=== PATIENT | female | born 1935 | race Two or more races ===

== ENCOUNTER 2017-08-11 21:35 | Inpatient (IN) | payer MEDICARE, MEDICAID ==
[~2017-08-11] VITALS: Ht 172.7 cm; Wt 75.9 kg
--- NOTE | 2017-08-11 21:41 | NUR ---
pt bib RA 89 with multiple complains of chest pressure, R knee pain, and weakness x2 days. pt speaking clearly in salvadorean. no slurred speech noted. pt in no acute distress.
[2017-08-11 22:14] LABS: BASOPHILS # (AUTO) 0.1 K/uL (0.0-8.0); BASOPHILS % (AUTO) 1.2 % (0.0-2.0); EOSINOPHILS # (AUTO) 0.6 K/uL (0.0-0.7); EOSINOPHILS % (AUTO) 6.8 % (0.0-7.0); HEMATOCRIT 36.7 % (31.2-41.9); HEMOGLOBIN 12.2 g/dL (10.9-14.3); LYMPHOCYTES % (AUTO) 31.6 % (20.5-51.5); MEAN CORPUSCULAR HEMOGLOBIN 30.5 uug (24.7-32.8); MEAN CORPUSCULAR HGB CONC 33 g/dL (32.3-35.6); MEAN CORPUSCULAR VOLUME 91.5 fL (75.5-95.3); MONOCYTES # (AUTO) 0.8 K/uL (2.0-10.0); MONOCYTES % (AUTO) 8.2 % (0.0-11.0); NEUTROPHILS % (AUTO) 52.2 % (38.5-71.5); PLATELET COUNT (AUTO) 534 K/uL (179-408); RED BLOOD CELL COUNT(AUTO) 4.01 MIL/uL (3.63-4.92); WHITE BLOOD COUNT (AUTO) 9.5 K/uL (3.8-11.8)
[2017-08-11 22:17] LABS: CARBON DIOXIDE 28 mmol/L (21-32); CHLORIDE 103 mmol/L (98-107); CREATININE 1.8 mg/dL (0.6-1.3); GLUCOSE 99 mg/dL (74-106); POTASSIUM 4.9 mmol/L (3.5-5.1); UREA NITROGEN, BLOOD 39 mg/dL (7-18)
[2017-08-11 22:30] LABS: ALANINE AMINOTRANSFERASE 18 U/L (14-59); ALKALINE PHOSPHATASE 117 U/L (50-136); ASPARTATE AMINOTRANSFERASE 12 U/L (15-37); BILIRUBIN,DIRECT 0.1 mg/dL (0.0-0.2); BILIRUBIN,TOTAL 0.7 mg/dL (0.2-1.0); TOTAL PROTEIN, SERUM 8.6 g/dL (6.4-8.2)
[2017-08-11 23:40] LABS: *BILIRUBIN,URIN NEGATIVE (NEGATIVE); *BLOOD, URINE Trace-intact (NEGATIVE); *CLARITY,URINE CLOUDY (CLEAR); *COLOR,URINE YELLOW (YELLOW); *KETONES,URINE NEGATIVE (NEGATIVE); *PROTEIN,URINE NEGATIVE (NEGATIVE); *UROBILINOGEN,URINE 0.2 E.U./dl (NORMAL); LEUKOCYTE ESTERASE ,URINE TRACE (NEGATIVE); NITRITE, URINE POSITIVE (NEGATIVE)
--- NOTE | 2017-08-11 23:40 | NUR ---
Patient is resting comfortably in bed with eyes closed, daughter at bedside. pt in no acute distress
[2017-08-11 23:47] LABS: UGLUCOSE 3+ (NEGATIVE)
[2017-08-11] MEDS ORDERED: SITA50TA PO (23:48)
[2017-08-11] MEDS ORDERED: CLON0.5T4 PO (23:48)
[2017-08-11] MEDS ORDERED: CANA100T PO (23:48)
[2017-08-11] MEDS ORDERED: ASPI81TA31 PO (23:48)
[2017-08-11] MEDS ORDERED: ATOR40TA PO (23:48)
[2017-08-11] MEDS ORDERED: REPA1TAB6 PO (23:48)
[2017-08-11] MEDS ORDERED: AMLO10TA2 PO (23:48)
[2017-08-11] MEDS ORDERED: CARV6.252 PO (23:48)
[2017-08-11 23:51] LABS: BACTERIA,URINE MANY /HPF (NONE SEEN); SQUAMOUS EPITHELIAL CELL,UR FEW /HPF (NONE SEEN); WBC,URINE 50-80 /HPF (0-3)
[2017-08-12] MEDS ORDERED: ASPIRIN 81 MG TAB.CHEW PO SCH (00:45)
[2017-08-12] MEDS ORDERED: CLONAZEPAM 0.5 MG TABLET PO SCH (00:45)
[2017-08-12] MEDS ORDERED: ATORVASTATIN 40 MG TABLET PO SCH (00:45)
[2017-08-12] MEDS ORDERED: CARVEDILOL 6.25 MG TABLET PO SCH (00:45)
[2017-08-12] MEDS ORDERED: AMLODIPINE 10 MG TABLET PO SCH (00:45)
--- NOTE | 2017-08-12 01:20 | NUR ---
bed assignment given for this pt at 0030. report given to inpt nurse Tierra RN at 0120.
[2017-08-12 02:07] VITALS: BP 139/51
[2017-08-12] MEDS ORDERED: FUROSEMIDE 40 MG/4 ML VIAL IV PRN (03:00)
[2017-08-12] MEDS ORDERED: ONDANSETRON 4 MG/2 ML VIAL IV PRN (03:00)
[2017-08-12] MEDS ORDERED: DEXTROSE 50% 50 ML DISP.SYRIN IV PRN ×2 (03:00→14:15)
[2017-08-12] MEDS ORDERED: INSULIN REGULAR, HUMAN 300 UNITS/3 ML VIAL SQ PRN (03:00)
[2017-08-12] MEDS ORDERED: INSULIN REGULAR, HUMAN 300 UNIT/3 ML VIAL SQ PRN ×2 (03:00→14:15)
--- NOTE | 2017-08-12 03:35 | NUR ---
ADMITTED THIS 82 Y.O. WOMAN FROM ER VIA [facility],ACCOMPANIED BY ER NURSE, ALERT AND ORIENTED, IN NO ACUTE RESP DISTRESS, APPEARS WEAK , AYALA CATHEHER PATENT AND DRAINING WELL TO YELLOW URINE, REPOSITIONED FOR COMFORT.NEEDS ATTENDED TO.SPEAKS AFGHAN ONLY. NO COMPLAINTS OF PAIN AT THIS TIME. KEPT DRY AND CLEAN.VS TAKEN AND RECORDED.ON TELE SINUS BRADY46. REFUSED TO BE BOTHERED ,JUST WANT TO SLEEP AND REST,TA.LE WERY EDEMATOUS,ELEVATED ON PILLOWS. CALL LITE W/I REACH.
[2017-08-12 04:00] VITALS: BP 124/65
[2017-08-12] MEDS ORDERED: CEFTRIAXONE 1 G VIAL ONE (04:19)
[2017-08-12] MEDS: CEFTRIAXONE 1 G in IV DEXTROSE 5% 50 ML IV SCH (05:04)
--- NOTE | 2017-08-12 06:37 | NUR ---
Initial blood sugar check shows 77, patient asymptomatic awake alert & oriented. 1 cup orange juice given. Will repeat blood sugar check in 15 mins.
[2017-08-12] MEDS: BLOOD SUGAR DIAGNOSTIC 1 EACH STRIP VI SCH ×4 (07:26→21:09)
--- NOTE | 2017-08-12 07:26 | NUR ---
Repeat blood sugar check shows 86. No acute resp distress. Report given to Danielle BRYSON.
[2017-08-12] MEDS: REPAGLINIDE 1 MG TABLET PO SCH (07:30)
--- NOTE | 2017-08-12 08:00 | NUR ---
AWAKE COOPERATE SPEAK MIRNA ON FALL PRECAUTION CALL LIGHT IN REACH AND BED ALARM ON
[2017-08-12] MEDS: CLONAZEPAM 0.5 MG TABLET PO SCH (08:24)
[2017-08-12] MEDS: ASPIRIN 81 MG TAB.CHEW PO SCH (08:24)
[2017-08-12] MEDS: ATORVASTATIN 40 MG TABLET PO SCH (08:24)
[2017-08-12] MEDS: AMLODIPINE 10 MG TABLET PO SCH (08:25)
[2017-08-12] MEDS: CARVEDILOL 6.25 MG TABLET PO SCH ×2 (08:25→09:00)
[2017-08-12] MEDS: HYDROCODONE/APAP 5-325MG TABLET PO PRN ×2 (08:59→21:29)
[2017-08-12] MEDS ORDERED: SITAGLIPTIN PHOSPHATE 50 MG TABLET PO SCH (09:00)
[2017-08-12] MEDS ORDERED: ENOXAPARIN SODIUM 40 MG/0.4 ML DISP.SYRIN SQ SCH (09:00)
[2017-08-12 10:51] LABS: BASOPHILS # (AUTO) 0.1 K/uL (0.0-8.0); BASOPHILS % (AUTO) 1.1 % (0.0-2.0); EOSINOPHILS # (AUTO) 0.6 K/uL (0.0-0.7); HEMOGLOBIN 11.5 g/dL (10.9-14.3); LYMPHOCYTES # (AUTO) 1.9 K/uL (20.0-40.0); MEAN CORPUSCULAR HEMOGLOBIN 30.9 uug (24.7-32.8); MEAN CORPUSCULAR HGB CONC 34 g/dL (32.3-35.6); MEAN CORPUSCULAR VOLUME 91.2 fL (75.5-95.3); MONOCYTES # (AUTO) 0.7 K/uL (2.0-10.0); NEUTROPHILS # (AUTO) 6.3 K/uL (1.8-8.9); NEUTROPHILS % (AUTO) 65.9 % (38.5-71.5); PLATELET COUNT (AUTO) 472 K/uL (179-408); RED BLOOD CELL COUNT(AUTO) 3.73 MIL/uL (3.63-4.92); WHITE BLOOD COUNT (AUTO) 9.5 K/uL (3.8-11.8)
[2017-08-12 10:57] LABS: ALANINE AMINOTRANSFERASE 18 U/L (14-59); ALKALINE PHOSPHATASE 100 U/L (50-136); ASPARTATE AMINOTRANSFERASE 23 U/L (15-37); BILIRUBIN,TOTAL 0.8 mg/dL (0.2-1.0); CARBON DIOXIDE 23 mmol/L (21-32); CHLORIDE 106 mmol/L (98-107); CREATININE 1.6 mg/dL (0.6-1.3); GLUCOSE 122 mg/dL (74-106); MAGNESIUM 2.3 mg/dL (1.8-2.4); PHOSPHOROUS 3.5 mg/dL (2.5-4.9); POTASSIUM 5.4 mmol/L (3.5-5.1); TOTAL PROTEIN, SERUM 7.3 g/dL (6.4-8.2); UREA NITROGEN, BLOOD 33 mg/dL (7-18)
--- NOTE | 2017-08-12 11:00 | NUR ---
Radha MTZ WELFARE WORKER SEE PATIENT AND LAB RESULT THIS AM NEW ORDER IN CHART FAMILY AT BEDSIDE NO SOB OR PAIN BLE STILL SWELLING KEEP UP ON PILLOW
[2017-08-12 12:02] VITALS: BP 119/45
[2017-08-12] MEDS: DOCUSATE SODIUM 100 MG CAPSULE PO SCH ×2 (13:17→21:07)
--- NOTE | 2017-08-12 15:00 | NUR ---
TO X RAY VIA BED FOR LUNG SCAN CONSENT SIGNS
--- NOTE | 2017-08-12 15:45 | NUR ---
BACK TO ROOM LAB DRAW K+ THIS PM ORDER
[2017-08-12 16:00] VITALS: BP_SYST 134; BP_SYST 135; BP_DIAS 42; BP_DIAS 45
--- NOTE | 2017-08-12 16:00 | NUR ---
ORTHO STATICS BP TAKEN ONLY LY AND SIT UNABLE TO STAND FOR CHECK BP
[2017-08-12] MEDS ORDERED: LACTULOSE 20 G/30 ML LIQUID UDC PO ONE (16:45)
--- NOTE | 2017-08-12 18:00 | NUR ---
HEMODYNAMIC STATUS STABLE PAIN UNDER CONTROL SAFETY MEASURE PROVIDED CALL LIGHT IN REACH NO ACUTE DISTRESS
[2017-08-12 20:00] VITALS: BP 126/40
--- NOTE | 2017-08-12 21:00 | NUR ---
Patient awake & alert no SOB denies chest pain. Vital signs WNL. Prolapsed uterus noted, patient c/o pain. Tylenol 650 mg po given. Vital signs WNL, sinus rhythm sinus leroy on the monitor.
[2017-08-12] MEDS: ACETAMINOPHEN 325 MG TABLET PO PRN (21:06)
[2017-08-12] MEDS: Z GUARD REMEDY PASTE 57 GM TUBE TOP PRN (21:43)
--- NOTE | 2017-08-12 22:00 | NUR ---
Sponge bath & oral hygiene provided. Kept comfortable.
[2017-08-13] VITALS: BP 129/50
[2017-08-13] MEDS: CEFTRIAXONE 1 G in IV DEXTROSE 5% 50 ML IV SCH (03:41)
[2017-08-13 04:00] VITALS: BP 118/40
--- NOTE | 2017-08-13 04:22 | NUR ---
Patient's left AC IV line infiltrated. Inserted a new IV line [id number] into her left forearm.
[2017-08-13 06:18] LABS: BASOPHILS # (AUTO) 0.1 K/uL (0.0-8.0); BASOPHILS % (AUTO) 0.9 % (0.0-2.0); EOSINOPHILS # (AUTO) 0.5 K/uL (0.0-0.7); EOSINOPHILS % (AUTO) 5.2 % (0.0-7.0); HEMATOCRIT 32.1 % (31.2-41.9); HEMOGLOBIN 10.5 g/dL (10.9-14.3); LYMPHOCYTES # (AUTO) 2.4 K/uL (20.0-40.0); LYMPHOCYTES % (AUTO) 25.6 % (20.5-51.5); MEAN CORPUSCULAR HEMOGLOBIN 30.1 uug (24.7-32.8); MEAN CORPUSCULAR HGB CONC 33 g/dL (32.3-35.6); MEAN CORPUSCULAR VOLUME 91.6 fL (75.5-95.3); MONOCYTES # (AUTO) 0.6 K/uL (2.0-10.0); NEUTROPHILS # (AUTO) 5.7 K/uL (1.8-8.9); NEUTROPHILS % (AUTO) 61.3 % (38.5-71.5); PLATELET COUNT (AUTO) 443 K/uL (179-408); WHITE BLOOD COUNT (AUTO) 9.3 K/uL (3.8-11.8)
[2017-08-13 06:39] LABS: ALANINE AMINOTRANSFERASE 13 U/L (14-59); ALKALINE PHOSPHATASE 86 U/L (50-136); ASPARTATE AMINOTRANSFERASE 13 U/L (15-37); BILIRUBIN,TOTAL 0.7 mg/dL (0.2-1.0); CARBON DIOXIDE 26 mmol/L (21-32); CHLORIDE 106 mmol/L (98-107); CHOLESTEROL 139 mg/dL (<200); CREATININE 1.6 mg/dL (0.6-1.3); GLUCOSE 102 mg/dL (74-106); HDL CHOLESTEROL 41 mg/dL (40-60); MAGNESIUM 2.2 mg/dL (1.8-2.4); PHOSPHOROUS 3.7 mg/dL (2.5-4.9); POTASSIUM 5.2 mmol/L (3.5-5.1); TOTAL PROTEIN, SERUM 6.5 g/dL (6.4-8.2); TRIGLYCERIDES 132 MG/DL (30-150); UREA NITROGEN, BLOOD 32 mg/dL (7-18)
[2017-08-13 06:49] LABS: THYROID STIMULATING HORMONE 1.171 mIU/mL (0.358-3.740)
[2017-08-13] MEDS: BLOOD SUGAR DIAGNOSTIC 1 EACH STRIP VI SCH ×4 (06:49→20:44)
[2017-08-13] MEDS: DOCUSATE SODIUM 100 MG CAPSULE PO SCH ×2 (08:16→20:45)
[2017-08-13] MEDS: ASPIRIN 81 MG TAB.CHEW PO SCH (08:17)
[2017-08-13] MEDS: ATORVASTATIN 40 MG TABLET PO SCH (08:17)
[2017-08-13] MEDS: CLONAZEPAM 0.5 MG TABLET PO SCH (08:17)
[2017-08-13] MEDS: AMLODIPINE 10 MG TABLET PO SCH (08:18)
[2017-08-13] MEDS: ENOXAPARIN SODIUM 30 MG/0.3 ML DISP.SYRIN SUBCUT SCH (08:21)
[2017-08-13] MEDS: REPAGLINIDE 1 MG TABLET PO SCH (08:21)
[2017-08-13] MEDS ORDERED: FUROSEMIDE 20 MG/2 ML VIAL IV SCH (09:00)
[2017-08-13] MEDS ORDERED: SITAGLIPTIN PHOSPHATE 50 MG TABLET PO SCH (09:00)
--- NOTE | 2017-08-13 10:27 | NUR ---
POTASSIUM LEVEL IS 5.2 REVIEWED BY MIMI INGRAM WITH NEW ORDERS FOR KAYEXALATE AND NOTED
[2017-08-13] MEDS ORDERED: SODIUM POLYSTYRENE SULFONATE 15 G/60 ML LIQUID UDC PO ONE (10:30)
[2017-08-13] MEDS: HYDROCODONE/APAP 5-325MG TABLET PO PRN ×2 (11:06→18:16)
[2017-08-13 11:30] VITALS: BP 146/40
--- NOTE | 2017-08-13 14:00 | NUR ---
PATIENTS DAUGHTER AT THE BEDSIDE AND DR ANASTASIA LE SPOKE WITH HER AND UPDATED THE PATIENTS PRESENT CONDITION.
[2017-08-13] MEDS: PANTOPRAZOLE SODIUM 40 MG TABLET.DR PO SCH (14:05)
--- NOTE | 2017-08-13 15:33 | NUR ---
RESTING COMFORTABLE LANGUAGE PROBLEM PERSISTS ALL NEEDS ANTICIPATED AND SATISFIED.WILL CONTINUE TO OBSERVE.
[2017-08-13 16:04] VITALS: BP 125/47
--- NOTE | 2017-08-13 19:30 | NUR ---
PT IN ROOM ALERT AWAKE IN NO ACUTE DISTRESS. DENIES ANY PAIN, HEADACHES, OR SOB. PT MADE AWARE OF PLAN OF CARE. NO C/O CHEST PAIN. SINUS SANAM NOTED AT 56 BPM. REMINDED PT TO REQUEST FOR ASSISTANCE WHEN NEEDED. CALL LIGHT WITHIN REACH. CONTINUE TO MONITOR.
[2017-08-13 20:27] VITALS: BP 142/53
[2017-08-14 00:14] VITALS: BP 145/55
--- NOTE | 2017-08-14 01:00 | NUR ---
PT IN ROOM ASLEEP IN NO ACUTE DISTRESS. RETOUCHING OPERATOR RANGES SINUS SANAM TO SINUS RHYTHM 52BPM-LOW 60'S. CONTINUE TO MONITOR.
[2017-08-14] MEDS: CEFTRIAXONE 1 G in IV DEXTROSE 5% 50 ML IV SCH (02:30)
--- NOTE | 2017-08-14 05:30 | NUR ---
PT ALERT AWAKE IN NO ACUTE DISTRESS. NO REACTION TO RECENT IV ROCEPHIN ABX THERAPY. NO S/S OF HYPER/HYPOGLYCEMIA. GROUP DIRECTOR EXPERIENCE STATES SINUS SANAM AT 53 BPM. DENIES ANY PAIN OR DISCOMFORT. CONTINUE TO MONITOR. CALL LIGHT PLACED WITHIN REACH.
[2017-08-14] MEDS: PANTOPRAZOLE SODIUM 40 MG TABLET.DR PO SCH (06:11)
[2017-08-14] MEDS: HYDROCODONE/APAP 5-325MG TABLET PO PRN (06:11)
[2017-08-14 06:24] VITALS: BP 162/57
[2017-08-14 06:38] LABS: BASOPHILS # (AUTO) 0.1 K/uL (0.0-8.0); BASOPHILS % (AUTO) 0.8 % (0.0-2.0); EOSINOPHILS # (AUTO) 0.5 K/uL (0.0-0.7); EOSINOPHILS % (AUTO) 5.1 % (0.0-7.0); HEMATOCRIT 34.9 % (31.2-41.9); HEMOGLOBIN 11.6 g/dL (10.9-14.3); LYMPHOCYTES # (AUTO) 2.6 K/uL (20.0-40.0); LYMPHOCYTES % (AUTO) 25.8 % (20.5-51.5); MEAN CORPUSCULAR HGB CONC 33 g/dL (32.3-35.6); MEAN CORPUSCULAR VOLUME 90.3 fL (75.5-95.3); MONOCYTES # (AUTO) 0.8 K/uL (2.0-10.0); MONOCYTES % (AUTO) 8.2 % (0.0-11.0); NEUTROPHILS % (AUTO) 60.1 % (38.5-71.5); PLATELET COUNT (AUTO) 479 K/uL (179-408); RED BLOOD CELL COUNT(AUTO) 3.86 MIL/uL (3.63-4.92); WHITE BLOOD COUNT (AUTO) 9.9 K/uL (3.8-11.8)
[2017-08-14 06:51] LABS: ALANINE AMINOTRANSFERASE 15 U/L (14-59); ALKALINE PHOSPHATASE 92 U/L (50-136); ASPARTATE AMINOTRANSFERASE 14 U/L (15-37); BILIRUBIN,TOTAL 0.6 mg/dL (0.2-1.0); CARBON DIOXIDE 25 mmol/L (21-32); CHLORIDE 105 mmol/L (98-107); CREATININE 1.5 mg/dL (0.6-1.3); GLUCOSE 104 mg/dL (74-106); MAGNESIUM 2.1 mg/dL (1.8-2.4); PHOSPHOROUS 3.5 mg/dL (2.5-4.9); POTASSIUM 4.8 mmol/L (3.5-5.1); TOTAL PROTEIN, SERUM 7.2 g/dL (6.4-8.2); UREA NITROGEN, BLOOD 29 mg/dL (7-18)
--- NOTE | 2017-08-14 07:30 | NUR ---
PT IN ROOM ALERT AWAKE IN NO ACUTE DISTRESS. NO REPORTS OF CHEST PAIN OR DISCOMFORT AT THIS TIME. WILL CONTINUE TO MONITOR. SINUS SANAM STILL NOTED ON NEEDLE MAKER. 55 BPM.
[2017-08-14] MEDS: BLOOD SUGAR DIAGNOSTIC 1 EACH STRIP VI SCH ×2 (07:35→10:48)
[2017-08-14] MEDS: AMLODIPINE 10 MG TABLET PO SCH (08:45)
[2017-08-14] MEDS: DOCUSATE SODIUM 100 MG CAPSULE PO SCH ×2 (08:45→20:36)
[2017-08-14] MEDS: ATORVASTATIN 40 MG TABLET PO SCH (08:45)
[2017-08-14] MEDS: ASPIRIN 81 MG TAB.CHEW PO SCH (08:45)
[2017-08-14] MEDS: CLONAZEPAM 0.5 MG TABLET PO SCH (08:45)
[2017-08-14] MEDS: ENOXAPARIN SODIUM 30 MG/0.3 ML DISP.SYRIN SUBCUT SCH (09:29)
[2017-08-14 11:32] VITALS: BP 149/51
--- NOTE | 2017-08-14 12:02 | NUR ---
report received from Howard BRYSON to continue care, resting in bed, denies of pain, tele SR, call light within reach
--- NOTE | 2017-08-14 15:29 | NUR ---
seen by Dr Zambrano
[2017-08-14 15:37] VITALS: BP 139/46
--- NOTE | 2017-08-14 18:56 | NUR ---
NO DISTRESS NOTED, ALL NEEDS ATTENDED AND MET, REPOSITIONED Q2H WITH HEELS OFF LOADED WITH PILLOWS, NO REDNESS ON SACRUM AND ON BOTH HEELS NOTED, SAFETY MEASURES MAINTAINED, CALL LIGHT WITHIN REACH
--- NOTE | 2017-08-14 20:00 | NUR ---
RECEIVED PT RESTING IN BED WITH BILATERAL LEGS ELEVATED VIA PILLOWS. NO DISTRESS NOTED AT THIS TIME. TELE NOTED TO BE SINUS RHYTHM WITH HR IN THE 60'S. BED IN LOW, LOCKED POSITION. CALL LIGHT WITHIN REACH.
[2017-08-14 20:11] VITALS: BP 126/86
[2017-08-14] MEDS: Z GUARD REMEDY PASTE 57 GM TUBE TOP PRN (20:36)
[2017-08-14] MEDS: ACETAMINOPHEN 325 MG TABLET PO PRN (20:36)
[2017-08-15] MEDS: CEFTRIAXONE 1 G in IV DEXTROSE 5% 50 ML IV SCH (02:33)
[2017-08-15 05:45] VITALS: BP 132/60
--- NOTE | 2017-08-15 05:47 | NUR ---
LIANA CARE AND MOUTH CARE PROVIDED. NO DISTRESS NOTED AT THIS TIME. BLE ELEVATED VIA PILLOWS. VITAL SIGNS WNL. D/C TELE ORDERED. BED IN LOW, LOCKED POSITION WITH BED ALARM ON. CALL LIGHT WITHIN REACH.
[2017-08-15] MEDS: PANTOPRAZOLE SODIUM 40 MG TABLET.DR PO SCH (06:13)
[2017-08-15 06:45] LABS: CARBON DIOXIDE 23 mmol/L (21-32); CHLORIDE 104 mmol/L (98-107); CREATININE 1.5 mg/dL (0.6-1.3); GLUCOSE 117 mg/dL (74-106); PHOSPHOROUS 3.5 mg/dL (2.5-4.9); POTASSIUM 4.4 mmol/L (3.5-5.1); UREA NITROGEN, BLOOD 28 mg/dL (7-18)
[2017-08-15 08:09] LABS: BASOPHILS # (AUTO) 0.1 K/uL (0.0-8.0); BASOPHILS % (AUTO) 1.2 % (0.0-2.0); EOSINOPHILS # (AUTO) 0.6 K/uL (0.0-0.7); EOSINOPHILS % (AUTO) 5.6 % (0.0-7.0); HEMATOCRIT 37.3 % (31.2-41.9); HEMOGLOBIN 12.3 g/dL (10.9-14.3); LYMPHOCYTES # (AUTO) 2.8 K/uL (20.0-40.0); LYMPHOCYTES % (AUTO) 25.3 % (20.5-51.5); MEAN CORPUSCULAR HEMOGLOBIN 30.2 uug (24.7-32.8); MEAN CORPUSCULAR HGB CONC 33 g/dL (32.3-35.6); MEAN CORPUSCULAR VOLUME 91.4 fL (75.5-95.3); MONOCYTES # (AUTO) 0.9 K/uL (2.0-10.0); MONOCYTES % (AUTO) 8.3 % (0.0-11.0); NEUTROPHILS # (AUTO) 6.5 K/uL (1.8-8.9); NEUTROPHILS % (AUTO) 59.6 % (38.5-71.5); RED BLOOD CELL COUNT(AUTO) 4.08 MIL/uL (3.63-4.92); WHITE BLOOD COUNT (AUTO) 10.9 K/uL (3.8-11.8)
[2017-08-15 08:10] LABS: PLATELET COUNT (AUTO) 288 K/uL (179-408)
[2017-08-15] MEDS: CLONAZEPAM 0.5 MG TABLET PO SCH (08:28)
[2017-08-15] MEDS: ASPIRIN 81 MG TAB.CHEW PO SCH (08:29)
[2017-08-15] MEDS: ATORVASTATIN 40 MG TABLET PO SCH (08:30)
[2017-08-15] MEDS: DOCUSATE SODIUM 100 MG CAPSULE PO SCH (08:30)
[2017-08-15] MEDS: AMLODIPINE 10 MG TABLET PO SCH (08:30)
[2017-08-15] MEDS: ENOXAPARIN SODIUM 30 MG/0.3 ML DISP.SYRIN SUBCUT SCH (08:33)
[2017-08-15 10:58] VITALS: BP 150/63
[2017-08-15 14:56] VITALS: BP 127/55
[2017-08-15] MEDS ORDERED: LEVO250T2 PO (15:55)
[2017-08-15] MEDS ORDERED: HYDR-3326 PO (15:55)
[2017-08-15] MEDS ORDERED: PANT40TA2 PO (15:55)
[2017-08-15] MEDS ORDERED: DOCU100C36 PO (15:55)
--- NOTE | 2017-08-15 18:25 | NUR ---
PT D/C TO ARU WITH EXIT CARE PACKET, ALL BELONGINGS AND VALUABLES. PICTURES WERE TAKEN AND PLACED IN THE CHART. PT IS STABLE TO D/C. AYALA AND IV SITE INTACT. PT CALM AND COOPERATIVE BUT STILL CONFUSED. PT NEEDS ASSISTANCE WITH TRANSFER FROM WHEEL CHAIR TO BED. REPORT GIVEN TO LUIS.
[2017-08-15 18:42] VITALS: BP 127/55
== END 2017-08-15 18:10 | DRG 205 ==
LOC: ER 21:35 → TELE 08-12 00:10 → MED 08-14 21:59
PROVIDERS: ADMIT Nurse Practitioner Acute Care; ATTEND Internal Medicine
DX: M94.0 Chondrocostal junction syndrome [Tietze] (principal); N17.0 Acute kidney failure with tubular necrosis; I50.33 Acute on chronic diastolic (congestive) heart failure; G93.40 Encephalopathy, unspecified; E44.0 Moderate protein-calorie malnutrition; E87.5 Hyperkalemia; E11.22 Type 2 diabetes mellitus with diabetic chronic kidney disease; D68.59 Other primary thrombophilia; I69.351 Hemiplegia and hemiparesis following cerebral infarction affecting right dominant side; I13.0 Hypertensive heart and chronic kidney disease with heart failure and stage 1 through stage 4 chronic kidney disease, or unspecified chronic kidney disease; N39.0 Urinary tract infection, site not specified; I25.10 Atherosclerotic heart disease of native coronary artery without angina pectoris; Z95.1 Presence of aortocoronary bypass graft; E78.5 Hyperlipidemia, unspecified; R00.1 Bradycardia, unspecified; T44.7X5A Adverse effect of beta-adrenoreceptor antagonists, initial encounter; Y92.009 Unspecified place in unspecified non-institutional (private) residence as the place of occurrence of the external cause; Z87.440 Personal history of urinary (tract) infections; N18.9 Chronic kidney disease, unspecified; B96.1 Klebsiella pneumoniae [K. pneumoniae] as the cause of diseases classified elsewhere; F01.50 Vascular dementia, unspecified severity, without behavioral disturbance, psychotic disturbance, mood disturbance, and anxiety; D64.9 Anemia, unspecified; Z68.25 Body mass index [BMI] 25.0-25.9, adult; K59.00 Constipation, unspecified; E66.9 Obesity, unspecified; I08.1 Rheumatic disorders of both mitral and tricuspid valves; K44.9 Diaphragmatic hernia without obstruction or gangrene; I70.0 Atherosclerosis of aorta; G93.89 Other specified disorders of brain; D47.3 Essential (hemorrhagic) thrombocythemia; M19.90 Unspecified osteoarthritis, unspecified site; R60.9 Edema, unspecified; T46.1X5A Adverse effect of calcium-channel blockers, initial encounter
CPT/HCPCS: 36415; 70030-TC; 70450; 71045; 78579; 83605; 83735; 84100; 84132; 84443; 85025; 85730; 87040; 87086; 93005; 93307; 97112; 97116; 97530; A4663; A9540; A9567; C1758; J0696; J1650; J1815; J3490; J7050; J7060

== ENCOUNTER 2017-08-15 14:47 | Inpatient (IN) | payer MEDICARE, MEDICAID ==
[~2017-08-15] VITALS: Ht 172.7 cm; Wt 75.7 kg
[~2017-08-15 14:47] MED LIST: AMLO10TA2 PO; ASPI81TA31 PO; ATOR40TA PO; CANA100T PO; CARV6.252 PO; CLON0.5T4 PO; REPA1TAB6 PO; SITA50TA PO
[2017-08-15] MEDS ORDERED: HYDR-3326 PO (15:55)
[2017-08-15] MEDS ORDERED: PANT40TA2 PO (15:55)
[2017-08-15] MEDS ORDERED: DOCU100C36 PO (15:55)
[2017-08-15] MEDS ORDERED: LEVO250T2 PO (15:55)
[2017-08-15 19:30] VITALS: BP 149/61
--- NOTE | 2017-08-15 19:50 | NUR ---
Received patient in bed, admitted from [facility], awake and was talking in Irish language. Vital signs taken and recorded. Gilmore catheter in place, draining well. Urine clear and yellow in color. No signs of any acute respiratory distress. Breathing even and nonlabored. MD made aware of the admission and informed about [facility]. Pertinent assessment done. Edema on BLE +1, L shoulder scratches and prolapsed uterus noted. Safety measures provided. Call light in reach. will monitor the patient.
[2017-08-15] MEDS ORDERED: Z GUARD REMEDY PASTE 57 GM TUBE TOP PRN (22:45)
[2017-08-15] MEDS ORDERED: CLONAZEPAM 0.5 MG TABLET PO SCH (22:45)
[2017-08-15] MEDS ORDERED: REPAGLINIDE 1 MG TABLET PO SCH (22:45)
[2017-08-15] MEDS ORDERED: AMLODIPINE 10 MG TABLET PO SCH (22:45)
[2017-08-15] MEDS ORDERED: ASPIRIN 81 MG TAB.CHEW PO SCH (22:45)
[2017-08-15] MEDS: CLONAZEPAM 0.5 MG TABLET PO SCH (23:43)
[2017-08-16] MEDS: PANTOPRAZOLE SODIUM 40 MG TABLET.DR PO SCH (06:24)
--- NOTE | 2017-08-16 07:00 | NUR ---
Flushed the saline lock with NS but was clogged and patient complained of pain when I tried to flush it. Removed the dislodged saline lock with tip intact and covered with bandage.
[2017-08-16 08:00] VITALS: BP 126/44
[2017-08-16] MEDS: LEVOFLOXACIN 250 MG TABLET PO SCH (09:59)
[2017-08-16] MEDS: DOCUSATE SODIUM 100 MG CAPSULE PO SCH ×2 (10:00→20:48)
[2017-08-16] MEDS: ASPIRIN 81 MG TAB.CHEW PO SCH (10:00)
[2017-08-16] MEDS: AMLODIPINE 10 MG TABLET PO SCH (10:00)
--- NOTE | 2017-08-16 12:30 | NUR ---
SBAR report received, board updated. Pt assessed, awake, alert, and oriented. Pt denies pain, acute distress, and/or SOB. Pt compliant with medication administration, taking pills whole one at a time. VS WNL. Gilmore catheter in place, continuing to drain well, and care provided. Family visiting bedside at this time, sitting up in chair for lunch. All comfort and safety needs met. Call light and personal belongings within reach. Will continue to monitor.
--- NOTE | 2017-08-16 18:42 | NUR ---
Pt resting comfortably in bed. Translation phone utilized to ensure understanding of Pt needs, Pt able to make needs known. Compliant with routine medication administration. Denies pain, expressing sadness over the change of her situation and independence. All comfort and safety measures implemented. Call light placed within reach. Will continue to monitor and endorse to oncoming night supervisor.
--- NOTE | 2017-08-16 19:25 | NUR ---
Patient in bed, awake, and with family at bedside. Vital signs taken and recorded. No acute distress. No SOB. Safety measures provided. All needs attended to promptly. Call light within reach. Will continue to monitor.
[2017-08-16] MEDS: CLONAZEPAM 0.5 MG TABLET PO SCH (20:48)
[2017-08-16] MEDS: ATORVASTATIN 40 MG TABLET PO SCH (20:48)
[2017-08-16 21:05] VITALS: BP 126/60
[2017-08-17] MEDS: REPAGLINIDE 1 MG TABLET PO SCH (06:34)
[2017-08-17] MEDS: PANTOPRAZOLE SODIUM 40 MG TABLET.DR PO SCH (06:34)
[2017-08-17 07:05] VITALS: BP 128/54
[2017-08-17] MEDS: ASPIRIN 81 MG TAB.CHEW PO SCH (08:45)
[2017-08-17] MEDS: LEVOFLOXACIN 250 MG TABLET PO SCH (08:46)
[2017-08-17] MEDS: DOCUSATE SODIUM 100 MG CAPSULE PO SCH ×2 (08:46→21:05)
[2017-08-17] MEDS: AMLODIPINE 10 MG TABLET PO SCH (08:46)
--- NOTE | 2017-08-17 10:06 | NUR ---
SBAR report received, board updated. Pt assessed, no c/o pain or acute distress noted. Pt sitting up for breakfast, feeding self. Pt compliant with all routine medication administration taking pills all together at once. VS WNL. Bed in low, locked position with side rails up x2. All needs attended to. Will continue to monitor.
--- NOTE | 2017-08-17 18:52 | NUR ---
No distress or pain noted this shift. Translation phone utilized for ensuring all Pt needs met. All safety and comfort measures implemented. Call light within reach. Will continue to monitor and endorse to oncoming shift manager.
--- NOTE | 2017-08-17 19:30 | NUR ---
Patient currently lying in bed comfortably with no signs of pain, sob, or acute distress at start of shift. Family at the bedside. Patient is Icelandic speaking only. Vital signs WNL. Noted with BLE edema +1 pitting. Call light placed within reach of patient. Will continue to monitor patient through shift.
[2017-08-17 20:48] VITALS: BP 133/65
[2017-08-17] MEDS: ATORVASTATIN 40 MG TABLET PO SCH (21:05)
[2017-08-17] MEDS: CLONAZEPAM 0.5 MG TABLET PO SCH (21:05)
--- NOTE | 2017-08-18 05:55 | NUR ---
Patient attempted to get out of bed several times through the night. Frequent patient roundings done. Bed alarm checked & on at all times. Bed kept in the lowest position & locked, x2 side rails up. Kept call light within reach of patient. Safety measures maintained through shift. All needs attended to. Kept clean, dry, changed per soiling. All meds administered as ordered. Will endorse to day shift nurse.
[2017-08-18] MEDS: PANTOPRAZOLE SODIUM 40 MG TABLET.DR PO SCH (06:24)
[2017-08-18 08:00] VITALS: BP 132/61
[2017-08-18 08:00] LABS: BASOPHILS # (AUTO) 0.1 K/uL (0.0-8.0); BASOPHILS % (AUTO) 1.1 % (0.0-2.0); EOSINOPHILS # (AUTO) 0.7 K/uL (0.0-0.7); EOSINOPHILS % (AUTO) 7.4 % (0.0-7.0); HEMATOCRIT 33.9 % (31.2-41.9); HEMOGLOBIN 11.5 g/dL (10.9-14.3); LYMPHOCYTES # (AUTO) 2.3 K/uL (20.0-40.0); LYMPHOCYTES % (AUTO) 25.5 % (20.5-51.5); MEAN CORPUSCULAR HEMOGLOBIN 30.8 uug (24.7-32.8); MEAN CORPUSCULAR HGB CONC 34 g/dL (32.3-35.6); MEAN CORPUSCULAR VOLUME 90.7 fL (75.5-95.3); MONOCYTES # (AUTO) 0.6 K/uL (2.0-10.0); MONOCYTES % (AUTO) 7.1 % (0.0-11.0); NEUTROPHILS # (AUTO) 5.3 K/uL (1.8-8.9); NEUTROPHILS % (AUTO) 58.9 % (38.5-71.5); PLATELET COUNT (AUTO) 558 K/uL (179-408); RED BLOOD CELL COUNT(AUTO) 3.74 MIL/uL (3.63-4.92); WHITE BLOOD COUNT (AUTO) 8.9 K/uL (3.8-11.8)
[2017-08-18 08:13] LABS: ALANINE AMINOTRANSFERASE 27 U/L (14-59); ALKALINE PHOSPHATASE 94 U/L (50-136); ASPARTATE AMINOTRANSFERASE 16 U/L (15-37); BILIRUBIN,TOTAL 0.6 mg/dL (0.2-1.0); CARBON DIOXIDE 26 mmol/L (21-32); CHLORIDE 105 mmol/L (98-107); CREATININE 1.8 mg/dL (0.6-1.3); GLUCOSE 147 mg/dL (74-106); MAGNESIUM 2.4 mg/dL (1.8-2.4); PHOSPHOROUS 3.4 mg/dL (2.5-4.9); POTASSIUM 4.3 mmol/L (3.5-5.1); TOTAL PROTEIN, SERUM 7.5 g/dL (6.4-8.2); UREA NITROGEN, BLOOD 45 mg/dL (7-18)
[2017-08-18] MEDS: DOCUSATE SODIUM 100 MG CAPSULE PO SCH ×2 (08:16→20:34)
[2017-08-18] MEDS: REPAGLINIDE 1 MG TABLET PO SCH (08:16)
[2017-08-18] MEDS: AMLODIPINE 10 MG TABLET PO SCH (08:17)
[2017-08-18] MEDS: LEVOFLOXACIN 250 MG TABLET PO SCH (08:17)
[2017-08-18] MEDS: ASPIRIN 81 MG TAB.CHEW PO SCH (08:17)
--- NOTE | 2017-08-18 19:30 | NUR ---
Received patient in bed. Alert and verbally responsive. Language barrier noted. Patient does not speak Hebrew. No s/s of pain. No facial grimacing noted. No acute distress. No SOB. With Gilmore Catheter. Intact and Patent. Draining clear yellow urine. Kept clean and dry. Both lower extremities kept elevated. All needs attended to promptly. Call light within reach. Will continue to monitor.
[2017-08-18 19:41] VITALS: BP 128/53
[2017-08-18] MEDS: CLONAZEPAM 0.5 MG TABLET PO SCH (20:34)
[2017-08-18] MEDS: ATORVASTATIN 40 MG TABLET PO SCH (20:34)
[2017-08-19] MEDS: PANTOPRAZOLE SODIUM 40 MG TABLET.DR PO SCH (06:24)
[2017-08-19 06:52] LABS: *CREATININE,URINE 78.2 mg/dL (30-125); *URINE TOTAL PROTEIN RANDOM 40.5 mg/dL (<150/24HR)
--- NOTE | 2017-08-19 06:54 | NUR ---
Patient slept comfortably throughout the night. No c/o pain and discomfort. No acute distress. No SOB. Gilmore catheter patent and intact. Draining clear yellow urine. Kept clean and dry. All needs attended to promptly. Call light within reach. Will continue to monitor.
[2017-08-19] MEDS: REPAGLINIDE 1 MG TABLET PO SCH (08:04)
[2017-08-19] MEDS: ASPIRIN 81 MG TAB.CHEW PO SCH (08:04)
[2017-08-19] MEDS: LEVOFLOXACIN 250 MG TABLET PO SCH (08:04)
[2017-08-19] MEDS: DOCUSATE SODIUM 100 MG CAPSULE PO SCH ×2 (08:05→20:27)
[2017-08-19] MEDS: AMLODIPINE 10 MG TABLET PO SCH (08:06)
[2017-08-19 08:34] VITALS: BP 146/54
[2017-08-19 08:41] LABS: *BILIRUBIN,URIN NEGATIVE (NEGATIVE); *BLOOD, URINE 1+ (NEGATIVE); *CLARITY,URINE CLEAR (CLEAR); *COLOR,URINE YELLOW (YELLOW); *KETONES,URINE NEGATIVE (NEGATIVE); *PROTEIN,URINE 1+ (NEGATIVE); *UROBILINOGEN,URINE 0.2 E.U./dl (NORMAL); LEUKOCYTE ESTERASE ,URINE NEGATIVE (NEGATIVE); NITRITE, URINE NEGATIVE (NEGATIVE); UGLUCOSE 2+ (NEGATIVE)
[2017-08-19 09:09] LABS: BACTERIA,URINE NONE SEEN /HPF (NONE SEEN); RBC,URINE 20-50 /HPF (0-3); SQUAMOUS EPITHELIAL CELL,UR MODERATE /HPF (NONE SEEN); URINE AMORPHOUS URATE FEW /HPF
[2017-08-19 09:10] LABS: MUCUS,URINE FEW /LPF (0-FEW)
--- NOTE | 2017-08-19 19:35 | NUR ---
Received pt in bed, AAO watching television. No acute distress noted. Denies pain or discomfort at this time. All safety measures and fall precaution maintained. Call light and all personal belongings within reach. Will continue to monitor.
[2017-08-19 19:48] VITALS: BP 128/58
[2017-08-19] MEDS: CLONAZEPAM 0.5 MG TABLET PO SCH (20:27)
[2017-08-19] MEDS: ATORVASTATIN 40 MG TABLET PO SCH (20:27)
[2017-08-20] MEDS: PANTOPRAZOLE SODIUM 40 MG TABLET.DR PO SCH (06:26)
[2017-08-20 07:30] VITALS: BP 126/58
[2017-08-20] MEDS: REPAGLINIDE 1 MG TABLET PO SCH (08:22)
[2017-08-20] MEDS: DOCUSATE SODIUM 100 MG CAPSULE PO SCH ×2 (08:23→20:33)
[2017-08-20] MEDS: LEVOFLOXACIN 250 MG TABLET PO SCH (08:23)
[2017-08-20] MEDS: AMLODIPINE 10 MG TABLET PO SCH (08:23)
[2017-08-20] MEDS: ASPIRIN 81 MG TAB.CHEW PO SCH (08:23)
[2017-08-20] MEDS: BISACODYL 5 MG TABLET.DR PO SCH (14:53)
--- NOTE | 2017-08-20 18:40 | NUR ---
pt stable throuhgout the day. got order for dulcolax on pt. given med. will ask training development director if pt had bm.
[2017-08-20 19:30] VITALS: BP 128/47
--- NOTE | 2017-08-20 19:30 | NUR ---
Patient stable at start of shift with no signs of pain, sob, or acute distress. Patient is A/Ox2-3, confused, & Angolan speaking only. Pertinent assessment completed. Vital signs within range at start of shift. Noted with Left forearm 20G IV which is patent & flushing well. No s/s of redness or infiltration noted at site. Room checked for safety at start of shift. Bed placed in low position & locked. Call light within reach. will continue to monitor through shift.
[2017-08-20] MEDS: CLONAZEPAM 0.5 MG TABLET PO SCH (20:33)
[2017-08-20] MEDS: ATORVASTATIN 40 MG TABLET PO SCH (20:33)
[2017-08-21] MEDS: PANTOPRAZOLE SODIUM 40 MG TABLET.DR PO SCH (06:17)
--- NOTE | 2017-08-21 06:44 | NUR ---
No acute distress noted during shift. All needs attended to. Patient kept clean, dry, intact. Diaper changed per soiling. All meds administered per order. Gilmore care provided. Vital signs WNL. Safety measures implemented. Call light within reach. Will endorse to day shift nurse.
[2017-08-21] MEDS: ASPIRIN 81 MG TAB.CHEW PO SCH (08:58)
[2017-08-21] MEDS: AMLODIPINE 10 MG TABLET PO SCH (08:58)
[2017-08-21] MEDS: DOCUSATE SODIUM 100 MG CAPSULE PO SCH ×2 (08:59→20:46)
[2017-08-21] MEDS: REPAGLINIDE 1 MG TABLET PO SCH (09:01)
--- NOTE | 2017-08-21 15:21 | NUR ---
AYALA CATHETER F/C DISLODGED DURING THERAPY TODAY. ASKED MD PACE HE SAYS WE CAN LEAVE IT OUT. SHE HAS BE INCONTINENT OF URINE X2 WITH 1 LG BM.
[2017-08-21 19:30] VITALS: BP 133/52
--- NOTE | 2017-08-21 19:40 | NUR ---
Received pt in bed, appearing to be asleep but easily arousable to verbal stimuli and light touch. No acute distress noted. Verbally responsive and able to make needs known. Denies pain or discomfort at this time. All safety measures and fall precautions maintained. Call light and all personal belongings within reach. Will continue to monitor.
[2017-08-21] MEDS: CLONAZEPAM 0.5 MG TABLET PO SCH (20:46)
[2017-08-21] MEDS: ATORVASTATIN 40 MG TABLET PO SCH (20:46)
[2017-08-22] MEDS: PANTOPRAZOLE SODIUM 40 MG TABLET.DR PO SCH (06:35)
[2017-08-22 07:34] LABS: BASOPHILS # (AUTO) 0.1 K/uL (0.0-8.0); BASOPHILS % (AUTO) 0.5 % (0.0-2.0); EOSINOPHILS # (AUTO) 0.6 K/uL (0.0-0.7); EOSINOPHILS % (AUTO) 5.2 % (0.0-7.0); HEMATOCRIT 34.8 % (31.2-41.9); HEMOGLOBIN 11.5 g/dL (10.9-14.3); LYMPHOCYTES # (AUTO) 2.3 K/uL (20.0-40.0); LYMPHOCYTES % (AUTO) 20.4 % (20.5-51.5); MEAN CORPUSCULAR HEMOGLOBIN 29.9 uug (24.7-32.8); MEAN CORPUSCULAR HGB CONC 33 g/dL (32.3-35.6); MONOCYTES # (AUTO) 0.9 K/uL (2.0-10.0); MONOCYTES % (AUTO) 7.9 % (0.0-11.0); NEUTROPHILS # (AUTO) 7.6 K/uL (1.8-8.9); PLATELET COUNT (AUTO) 618 K/uL (179-408); RED BLOOD CELL COUNT(AUTO) 3.86 MIL/uL (3.63-4.92)
[2017-08-22 07:47] LABS: WHITE BLOOD COUNT (AUTO) 11.5 K/uL (3.8-11.8)
[2017-08-22 07:56] VITALS: BP 141/56
[2017-08-22 08:03] LABS: ALANINE AMINOTRANSFERASE 18 U/L (14-59); ALKALINE PHOSPHATASE 98 U/L (50-136); ASPARTATE AMINOTRANSFERASE 12 U/L (15-37); BILIRUBIN,TOTAL 0.7 mg/dL (0.2-1.0); CARBON DIOXIDE 26 mmol/L (21-32); CHLORIDE 105 mmol/L (98-107); CREATININE 1.5 mg/dL (0.6-1.3); GLUCOSE 123 mg/dL (74-106); MAGNESIUM 2.3 mg/dL (1.8-2.4); PHOSPHOROUS 3.4 mg/dL (2.5-4.9); POTASSIUM 4.4 mmol/L (3.5-5.1); TOTAL PROTEIN, SERUM 7.2 g/dL (6.4-8.2); UREA NITROGEN, BLOOD 34 mg/dL (7-18)
[2017-08-22] MEDS: ASPIRIN 81 MG TAB.CHEW PO SCH (08:20)
[2017-08-22] MEDS: REPAGLINIDE 1 MG TABLET PO SCH (08:20)
[2017-08-22] MEDS: DOCUSATE SODIUM 100 MG CAPSULE PO SCH ×2 (08:20→21:03)
[2017-08-22] MEDS: AMLODIPINE 10 MG TABLET PO SCH (08:21)
--- NOTE | 2017-08-22 11:59 | NUR ---
WOUND CARE CONSULT: PT PRESENTS WITH DEEP TISSUE INJURY WHICH IS INTACT TO SACRUM, EXTENDING TO BUTTOCKS. PT IS INCONTINENT AND HAS RT SIDED WEAKNESS. RASH TO LEFT SHOULDER AREA NOTED WITH FADED RED SPOTS. DEFER TO MD. PT NOTED TO HAVE UTERINE PROLAPSE. DEFER TO MD. RT GROIN AREA NOTED TO HAVE EXCORIATION. RECOMMENDATIONS MADE AND DISCUSSED WITH NURSING STAFF. CURRENT GEOFF SCORE IS 13. FIRST STEP MATTRESS ORDERED. ALL SKIN PROTECTION AND WOUND CARE RECOMMENDATIONS DISCUSSED WITH NURSING STAFF. WILL SEE PRN. MD IN AGREEMENT WITH PLAN OF CARE. Addendum: 08/22/17 at 1203 by WINSTON MOROCHO RN Amended: Links added.
--- NOTE | 2017-08-22 19:35 | NUR ---
Received patient in bed, awake, and verbally responsive in Serbian language. Vital signs taken and recorded. No acute distress. No SOB. Breathing even and nonlabored. Safety measures provided. All needs attended to promptly. Call light within reach. Will continue to monitor.
[2017-08-22] MEDS: CLONAZEPAM 0.5 MG TABLET PO SCH (21:04)
[2017-08-22] MEDS: ATORVASTATIN 40 MG TABLET PO SCH (21:04)
[2017-08-22 21:12] VITALS: BP 135/56
[2017-08-23] MEDS: REPAGLINIDE 1 MG TABLET PO SCH (06:31)
[2017-08-23] MEDS: PANTOPRAZOLE SODIUM 40 MG TABLET.DR PO SCH (06:31)
[2017-08-23 08:26] VITALS: BP 136/54
[2017-08-23] MEDS: ASPIRIN 81 MG TAB.CHEW PO SCH (08:34)
[2017-08-23] MEDS: DOCUSATE SODIUM 100 MG CAPSULE PO SCH ×2 (08:34→20:12)
[2017-08-23] MEDS: AMLODIPINE 10 MG TABLET PO SCH (08:35)
--- NOTE | 2017-08-23 15:28 | NUR ---
SBAR report received, board updated. Pt assessed, no c/o pain, SOB, or acute distress noted. Pt compliant with all routine medication administration. PT able to make needs known, family visiting at bedside assists at times. Bed in locked and lowest position with side rails up x2. Pt sitting up right in wheel chair for meals. Pt seen by . confirmed no need for Gynecological consult at this time simply to keep prolapsed uterus moist with NS. Call light and personal items placed within reach. All comfort and safety measures implemented. Will continue to monitor.
--- NOTE | 2017-08-23 18:45 | NUR ---
Pt repositioned for comfort, changed, clean, and dry at this time. All needs attended to. No change to plan of care this shift. Prolapsed uterus kept moist with NS and kerlix dressing. All needs attended to, call light within reach. Will continue to monitor and endorse to on coming material handler 2nd shift.
--- NOTE | 2017-08-23 19:41 | NUR ---
Received patient in bed, awake and verbally responsive in her primary language. Vital signs taken and recorded. No sob, or acute distress noted. Safety measures provided. Bed placed in low position. Bed alarm on. Call light within reach. will continue to monitor patient.
[2017-08-23] MEDS: CLONAZEPAM 0.5 MG TABLET PO SCH (20:11)
[2017-08-23] MEDS: ATORVASTATIN 40 MG TABLET PO SCH (20:11)
[2017-08-23] MEDS: HYDROCODONE/APAP 5-325MG TABLET PO PRN (20:13)
[2017-08-23 20:17] VITALS: BP 137/59
[2017-08-24] MEDS: PANTOPRAZOLE SODIUM 40 MG TABLET.DR PO SCH (06:25)
[2017-08-24] MEDS: REPAGLINIDE 1 MG TABLET PO SCH (06:25)
[2017-08-24 07:30] VITALS: BP 128/54
[2017-08-24] MEDS: DOCUSATE SODIUM 100 MG CAPSULE PO SCH ×2 (08:37→20:26)
[2017-08-24] MEDS: ASPIRIN 81 MG TAB.CHEW PO SCH (08:38)
[2017-08-24] MEDS: AMLODIPINE 10 MG TABLET PO SCH (08:38)
[2017-08-24] MEDS: HYDROCODONE/APAP 5-325MG TABLET PO PRN (08:43)
--- NOTE | 2017-08-24 09:57 | NUR ---
SBAR report received, board updated. Pt assessed. Pt able to make needs known, demonstrates pain with no SOB. PRN pain medication administered per orders. Bed in locked and lowest position. Pt compliant with all routine medication administration. Plan of care for today discussed. Call light placed within reach. All comfort and safety measures met. Will continue to monitor.
--- NOTE | 2017-08-24 17:55 | NUR ---
Pt seen by NAIL MAKING MACHINE SETTER, no new orders, plan to continue wound care as ordered. All needs attended to. Pt clean, dry, and changed. Wound care provided, pictures updated, and NS applied to prolapsed uterus which appears to be reducing. Call light within reach. Will continue to monitor and endorse to on coming flight software test engineer nurse.
--- NOTE | 2017-08-24 19:39 | NUR ---
Patient in bed, awake, and verbally responsive in Azeri language. Vital signs taken and recorded. No acute distress. No SOB. Breathing even and nonlabored. Safety measures provided. All needs attended to promptly. Call light within reach. Will continue to monitor.
[2017-08-24] MEDS: CLONAZEPAM 0.5 MG TABLET PO SCH (20:26)
[2017-08-24] MEDS: ATORVASTATIN 40 MG TABLET PO SCH (20:26)
[2017-08-24 20:46] VITALS: BP 171/64
[2017-08-25] MEDS: PANTOPRAZOLE SODIUM 40 MG TABLET.DR PO SCH (06:23)
[2017-08-25] MEDS: REPAGLINIDE 1 MG TABLET PO SCH (06:24)
--- NOTE | 2017-08-25 07:04 | NUR ---
Patient slept the entire shift. No s/s of any respi. distress. Denies of any pain. Dressing changed per soiling. Will endorse to AM shift nurse.
[2017-08-25 07:30] VITALS: BP 152/68
[2017-08-25] MEDS: DOCUSATE SODIUM 100 MG CAPSULE PO SCH ×2 (09:34→20:59)
[2017-08-25] MEDS: AMLODIPINE 10 MG TABLET PO SCH (09:35)
[2017-08-25] MEDS: ASPIRIN 81 MG TAB.CHEW PO SCH (09:35)
[2017-08-25] MEDS: HYDROCODONE/APAP 5-325MG TABLET PO PRN ×2 (10:14→11:56)
--- NOTE | 2017-08-25 13:19 | NUR ---
I agree Addendum: 08/25/17 at 1319 by VENESSA HUDSON OT Amended: Links added.
--- NOTE | 2017-08-25 13:19 | NUR ---
I agree Addendum: 08/25/17 at 1320 by VENESSA HUDSON OT Amended: Links added.
[2017-08-25 19:30] VITALS: BP 133/53
--- NOTE | 2017-08-25 19:55 | NUR ---
Pt resting in bed. Sri Lankan speaking. No acute distress noted. No c/o or signs of pain or discomfort at this time. Safety measures maintained. Call light and personal belongings within reach. Will continue to monitor.
[2017-08-25] MEDS: ATORVASTATIN 40 MG TABLET PO SCH (20:59)
[2017-08-25] MEDS: CLONAZEPAM 0.5 MG TABLET PO SCH (20:59)
[2017-08-26] MEDS: PANTOPRAZOLE SODIUM 40 MG TABLET.DR PO SCH (06:17)
[2017-08-26] MEDS: ASPIRIN 81 MG TAB.CHEW PO SCH (08:16)
[2017-08-26] MEDS: DOCUSATE SODIUM 100 MG CAPSULE PO SCH ×2 (08:16→20:19)
[2017-08-26] MEDS: REPAGLINIDE 1 MG TABLET PO SCH (08:16)
[2017-08-26] MEDS: AMLODIPINE 10 MG TABLET PO SCH (08:17)
[2017-08-26 08:56] VITALS: BP 134/58
--- NOTE | 2017-08-26 13:52 | NUR ---
INTERDISCIPLINARY TEAM CONFERENCE
--- NOTE | 2017-08-26 13:52 | NUR ---
I agree Addendum: 08/26/17 at 1353 by VENESSA HUDSON OT Amended: Links added.
--- NOTE | 2017-08-26 13:54 | NUR ---
I agree Addendum: 08/26/17 at 1354 by VENESSA HUDSON OT Amended: Links added.
--- NOTE | 2017-08-26 17:58 | NUR ---
Patient resting in bed, in no distress. All needs met. Safety measures in place. Call light within reach, bed alarm on. Will continue to monitor.
[2017-08-26 19:30] VITALS: BP 146/60
--- NOTE | 2017-08-26 19:50 | NUR ---
Pt resting comfortably in bed. No acute distress noted. No complaints or signs of pain or discomfort at this time. On air mattress. Safety measures maintained. Call light and personal belongings within reach. Will continue to monitor.
[2017-08-26] MEDS: CLONAZEPAM 0.5 MG TABLET PO SCH (20:19)
[2017-08-26] MEDS: ATORVASTATIN 40 MG TABLET PO SCH (20:19)
[2017-08-27] MEDS: PANTOPRAZOLE SODIUM 40 MG TABLET.DR PO SCH (06:05)
--- NOTE | 2017-08-27 07:25 | NUR ---
Received report from blower blast furnace nurse, patient in bed awake, no distress noted, bed in low position, side rails up x2. Bed alarm on, air mattress on, all safety measures in place.
[2017-08-27 07:56] VITALS: BP 172/58
--- NOTE | 2017-08-27 09:00 | NUR ---
Wound care performed on prolapsed uterus, wrapped with NS soaked kerlix.
[2017-08-27] MEDS: ASPIRIN 81 MG TAB.CHEW PO SCH (09:02)
[2017-08-27] MEDS: DOCUSATE SODIUM 100 MG CAPSULE PO SCH ×2 (09:03→20:17)
[2017-08-27] MEDS: AMLODIPINE 10 MG TABLET PO SCH (09:03)
[2017-08-27] MEDS: REPAGLINIDE 1 MG TABLET PO SCH (09:03)
--- NOTE | 2017-08-27 18:49 | NUR ---
PATIENT HAS BEEN COOPERATIVE WITH CARE, NO EVIDENCE OF DISTRESS THROUGHOUT THE DAY. BED IN LOW POSITION, SIDE RAILS UP X2, CALL LIGHT IN REACH.
[2017-08-27] MEDS: CLONAZEPAM 0.5 MG TABLET PO SCH (20:17)
[2017-08-27] MEDS: ATORVASTATIN 40 MG TABLET PO SCH (20:17)
[2017-08-27 20:37] VITALS: BP 142/69
--- NOTE | 2017-08-27 23:42 | NUR ---
RECEIVED PT AWAKE, ALERT , ORIENTED X1. PT SHOWS NO SIGNS OF DISTRESS. CALL LIGHT WITHIN REACH. BED ALARM ON AND IN LOW POSITION. SIDE RAILS UP X2. WILL CONTINUE TO MONITOR
[2017-08-28] MEDS: PANTOPRAZOLE SODIUM 40 MG TABLET.DR PO SCH (06:07)
--- NOTE | 2017-08-28 06:16 | NUR ---
PT GOWN, LINENS, DIAPER WERE CHANGED. PT URINATED BUT NO BOWEL MOVEMENT. PT KEEP TRYING TO TOUCH HER RIGHT EAR THAT HAS WOUND. PT SAFETY PROVIDED.
--- NOTE | 2017-08-28 06:17 | NUR ---
PT SLEPT THROUGHOUT THE SHIFT. PT SHOWS NO SIGNS OF DISTRESS. PRESCRIBED MEDICATION GIVEN AND PT TOLERATED IT WELL.PT STABLE.WOUND CARE PROVIDED. CALL LIGHT WITHIN REACH. BED ALARM ON AND IN LOW POSITION. SIDE RAILS UP [id number] AND COMFORT PROVIDED. ALL NEEDS ARE MET.WILL ENDORSE TO DAYSHIFT NURSE.
[2017-08-28] MEDS: REPAGLINIDE 1 MG TABLET PO SCH (06:32)
[2017-08-28 07:23] LABS: CARBON DIOXIDE 29 mmol/L (21-32); CHLORIDE 104 mmol/L (98-107); CREATININE 1.4 mg/dL (0.6-1.3); GLUCOSE 113 mg/dL (74-106); PHOSPHOROUS 3.7 mg/dL (2.5-4.9); POTASSIUM 4.5 mmol/L (3.5-5.1); UREA NITROGEN, BLOOD 34 mg/dL (7-18)
[2017-08-28 07:45] LABS: BASOPHILS # (AUTO) 0.1 K/uL (0.0-8.0); BASOPHILS % (AUTO) 1.2 % (0.0-2.0); EOSINOPHILS # (AUTO) 0.6 K/uL (0.0-0.7); EOSINOPHILS % (AUTO) 5.9 % (0.0-7.0); HEMATOCRIT 36.7 % (31.2-41.9); LYMPHOCYTES # (AUTO) 2.7 K/uL (20.0-40.0); LYMPHOCYTES % (AUTO) 26.5 % (20.5-51.5); MEAN CORPUSCULAR HEMOGLOBIN 29.5 uug (24.7-32.8); MEAN CORPUSCULAR HGB CONC 33 g/dL (32.3-35.6); MEAN CORPUSCULAR VOLUME 90.1 fL (75.5-95.3); MONOCYTES # (AUTO) 0.6 K/uL (2.0-10.0); MONOCYTES % (AUTO) 5.5 % (0.0-11.0); NEUTROPHILS # (AUTO) 6.1 K/uL (1.8-8.9); NEUTROPHILS % (AUTO) 60.9 % (38.5-71.5); PLATELET COUNT (AUTO) 671 K/uL (179-408); RED BLOOD CELL COUNT(AUTO) 4.08 MIL/uL (3.63-4.92); WHITE BLOOD COUNT (AUTO) 10.1 K/uL (3.8-11.8)
[2017-08-28 08:00] VITALS: BP 137/56
[2017-08-28] MEDS: ASPIRIN 81 MG TAB.CHEW PO SCH (09:15)
[2017-08-28] MEDS: AMLODIPINE 10 MG TABLET PO SCH (09:15)
[2017-08-28] MEDS: DOCUSATE SODIUM 100 MG CAPSULE PO SCH ×2 (09:15→20:18)
[2017-08-28] MEDS: HYDROCODONE/APAP 5-325MG TABLET PO PRN (10:11)
[2017-08-28] MEDS: BISACODYL 5 MG TABLET.DR PO SCH (12:56)
--- NOTE | 2017-08-28 19:32 | NUR ---
Pt awake and resting in bed. Scottish speaking. No acute distress noted. No signs of pain or discomfort. Safety measures maintained. Call light and personal belongings within reach. Will continue to monitor.
--- NOTE | 2017-08-28 19:44 | NUR ---
HANDOFF WITH NIGHT NURSE.
[2017-08-28] MEDS: CLONAZEPAM 0.5 MG TABLET PO SCH (20:18)
[2017-08-28] MEDS: ATORVASTATIN 40 MG TABLET PO SCH (20:18)
[2017-08-28 20:36] VITALS: BP 148/45
[2017-08-29] MEDS: PANTOPRAZOLE SODIUM 40 MG TABLET.DR PO SCH (06:26)
[2017-08-29 08:00] VITALS: BP 158/72
[2017-08-29] MEDS: AMLODIPINE 10 MG TABLET PO SCH (08:14)
[2017-08-29] MEDS: REPAGLINIDE 1 MG TABLET PO SCH (08:14)
[2017-08-29] MEDS: ASPIRIN 81 MG TAB.CHEW PO SCH (08:14)
[2017-08-29] MEDS: DOCUSATE SODIUM 100 MG CAPSULE PO SCH ×2 (08:14→20:01)
--- NOTE | 2017-08-29 18:16 | NUR ---
Patient alert, in no distress. Wound treatment done as ordered. Patient kept clean/dry, offloaded buttocks area. VS stable, pt remains afebrile. Safety measures in place.
[2017-08-29 19:30] VITALS: BP 157/81
[2017-08-29] MEDS: ATORVASTATIN 40 MG TABLET PO SCH (20:01)
[2017-08-29] MEDS: CLONAZEPAM 0.5 MG TABLET PO SCH (20:01)
--- NOTE | 2017-08-29 21:30 | NUR ---
Pt resting in bed. Noted pt to be crying and stated that no one visited her today. Pt asked to call her family. Son was called and pt talked to him. No complaints or signs of pain. No acute distress noted. Safety measures maintained. Call light and personal belongings within reach. Will continue to monitor.
[2017-08-30 04:08] LABS: VIT D, 25-HYDROXY 23.2 ng/mL (30.0-100.0)
[2017-08-30] MEDS: PANTOPRAZOLE SODIUM 40 MG TABLET.DR PO SCH (06:21)
--- NOTE | 2017-08-30 06:33 | NUR ---
Pt to be discharge today. Expected discharge at 6pm. TMS in chart. Will endorse to day shift RN.
--- NOTE | 2017-08-30 07:30 | NUR ---
Awake, alert, oriented x 2, Uruguayan speaking, pleasant. On moderate high back rest, comfortable
[2017-08-30 08:00] VITALS: BP 157/52
[2017-08-30] MEDS: DOCUSATE SODIUM 100 MG CAPSULE PO SCH (08:57)
[2017-08-30] MEDS: REPAGLINIDE 1 MG TABLET PO SCH (08:57)
[2017-08-30] MEDS: ASPIRIN 81 MG TAB.CHEW PO SCH (08:57)
[2017-08-30] MEDS: AMLODIPINE 10 MG TABLET PO SCH (08:58)
--- NOTE | 2017-08-30 09:00 | NUR ---
Offered assistance with breakfast but refused to eat anything but drank tea with medication
--- NOTE | 2017-08-30 11:19 | NUR ---
Crying and feeling, sandwich and juices given
[2017-08-30 13:07] LABS: CALCITRIOL VIT D,1,25 DIHYDROX 38.4 pg/mL (19.9-79.3)
--- NOTE | 2017-08-30 13:15 | NUR ---
Social Work Consult: SW received consult to speak with patient after she requested [employer]. Met with patient at bedside and used [employer] Tailor Apprentice #[id number]. Patient expressed concerns about caregiving when she returns home. SW provided active listening and explored options with her in regards to types of care giving. Per chart, the patient will receive home health from an agency that she was already receiving services from. However, pt stated that she would need more help than what Home Health could provide. SW educated and provided information regarding In-Home Supportive Services to the patient, and pt stated she would be interested in receiving those services. Collaborated with RODGER Tsang to confirm if patient will be receiving HH. Per Trinh, pt will be getting Home Health upon discharge. Spoke with patient's daughter, Kim ([phone]), with whom the patient lives, and provided her with information about [facility]. Patient's daughter was agreeable to this resource. Placed written (in Mohawk and Mozambican) information about [facility] in patient's discharge packet. BRAYDON Rodarte aware. SW will continue to be available to pt and family as needed for this patient.
--- NOTE | 2017-08-30 15:54 | NUR ---
Sponge bath given with incontinence care. Skin/Wound care done. Photos taken for discharge
[2017-08-30] MEDS: HYDROCODONE/APAP 5-325MG TABLET PO PRN (16:57)
[2017-08-30 18:00] VITALS: BP 152/78
--- NOTE | 2017-08-30 19:52 | NUR ---
DC instructions given to daughter, verbalized understanding. Assisted by LITIGATION CLAIM REPRESENTATIVE in changing clothes. Discharge per wheelchair in fair condition no tin distress, afebrile accompanied by family.
== END 2017-08-30 19:52 | disposition home health service (06) | DRG 947 ==
PROVIDERS: ADMIT Physical Medicine & Rehabilitation Pain Medicine; ATTEND Physical Medicine & Rehabilitation Pain Medicine
DX: R53.1 Weakness (principal); G93.40 Encephalopathy, unspecified; N17.0 Acute kidney failure with tubular necrosis; E44.0 Moderate protein-calorie malnutrition; D68.59 Other primary thrombophilia; E11.22 Type 2 diabetes mellitus with diabetic chronic kidney disease; G93.89 Other specified disorders of brain; I08.1 Rheumatic disorders of both mitral and tricuspid valves; I13.0 Hypertensive heart and chronic kidney disease with heart failure and stage 1 through stage 4 chronic kidney disease, or unspecified chronic kidney disease; I50.32 Chronic diastolic (congestive) heart failure; I69.351 Hemiplegia and hemiparesis following cerebral infarction affecting right dominant side; N39.0 Urinary tract infection, site not specified; F01.50 Vascular dementia, unspecified severity, without behavioral disturbance, psychotic disturbance, mood disturbance, and anxiety; N18.9 Chronic kidney disease, unspecified; I25.10 Atherosclerotic heart disease of native coronary artery without angina pectoris; B96.1 Klebsiella pneumoniae [K. pneumoniae] as the cause of diseases classified elsewhere; D64.9 Anemia, unspecified; E66.9 Obesity, unspecified; Z68.25 Body mass index [BMI] 25.0-25.9, adult; E78.5 Hyperlipidemia, unspecified; I70.0 Atherosclerosis of aorta; K59.00 Constipation, unspecified; Z87.440 Personal history of urinary (tract) infections; Z95.1 Presence of aortocoronary bypass graft; R26.9 Unspecified abnormalities of gait and mobility
CPT/HCPCS: 36415; 82306; 82652; 83735; 83970; 84100; 84156; 84300; 85025; 92526; 92610; 97110; 97112; 97116; 97530; 97535; A4217